=== PATIENT | female | born 1980 | race Caucasian/White ===

== ENCOUNTER → 2024-11-22 | Outpatient (REF) | payer MEDICARE ==
[2024-11-22 17:46] LABS: APPEARANCE, URINE HAZY (CLEAR); BACTERIA, URINE AUTO 3+ (NEGATIVE); BILIRUBIN, URINE AUTO NEGATIVE (NEGATIVE); BLOOD, URINE BLOOD NEGATIVE (NEGATIVE); COLOR, URINE YELLOW (YELLOW); GLUCOSE, URINE (UA) AUTO NEGATIVE (NEGATIVE); KETONE, URINE AUTO NEGATIVE (NEGATIVE); LEUKOCYTE ESTERASE, URINE AUTO NEGATIVE (NEGATIVE); MUCUS, URINE SMALL (NEGATIVE); NITRITE, URINE AUTO NEGATIVE (NEGATIVE); PROTEIN, URINE AUTO NEGATIVE (NEGATIVE); RBC, URINE AUTO 2 /HPF (0-3); SPECIFIC GRAVITY URINE AUTO 1.014 (1.002-1.035); SQUAMOUS EPITHELIAL CELL UR AU 8 /HPF (0-6); UROBILINOGEN, URINE AUTO 0.2 mg/dL (0.0-2.0); WBC, URINE AUTO 1 /HPF (0-3)
== END ==
LOC: M LAB REF 16:17
PROVIDERS: ATTEND Physician Assistant Medical
DX: N39.0 Urinary tract infection, site not specified (principal)

== ENCOUNTER 2025-01-04 02:44 | Emergency (ER) | payer MEDICARE ==
[~2025-01-04] VITALS: Ht 162.6 cm; Wt 88.2 kg
[2025-01-04 04:56] VITALS: BP 119/74; TEMP 97.9; O2SAT 99
== END 2025-01-04 04:55 | disposition home or self-care (01) ==
LOC: M ED 02:44
DX: F43.0 Acute stress reaction (principal); F41.9 Anxiety disorder, unspecified

== ENCOUNTER → 2025-04-22 | Outpatient (CLI) | payer MEDICARE ==
[2025-04-22 14:49] LABS: BASO # 0.0 10^3/uL (0.0-0.2); BASO % 0.6 % (0.0-1.0); EOS # 0.2 10^3/uL (0.0-0.5); EOS % 2.9 % (0.0-3.0); LYMPH # 1.9 10^3/uL (1.5-5.0); LYMPH % 31.1 % (24.0-44.0); MONO # 0.6 10^3/uL (0.0-0.8); MONO % 10.0 % (2.0-8.0); NEUTROPHILS # 3.4 10^3/uL (1.5-8.5); NEUTROPHILS % 55.2 % (36.0-66.0); PLATELET COUNT, AUTOMATED 279 10^3/uL (150-450)
[2025-04-22 15:19] LABS: ALT/SGPT 69 U/L (7.0-40); AST/SGOT 42 U/L (<34); CALCIUM LEVEL 9.1 MG/DL (8.5-10.1); CARBON DIOXIDE LEVEL 26 MMOL/L (20-31); CHLORIDE LEVEL 105 MMOL/L (98-107); CREATININE FOR GFR 0.87 MG/DL (0.55-1.30); GLOMERULAR FILTRATION RATE 84.7 (>58); POTASSIUM SERUM 4.1 MMOL/L (3.5-5.1); SODIUM LEVEL 143 MMOL/L (136-145)
[2025-04-22 15:23] LABS: VITAMIN B12 LEVEL 673 PG/ML (211-911)
== END ==
LOC: M LAB 13:47
PROVIDERS: ATTEND Psychiatry & Neurology Neurology
DX: E53.8 Deficiency of other specified B group vitamins (principal); E03.9 Hypothyroidism, unspecified

== ENCOUNTER 2025-05-07 10:20 | Emergency (ER) | payer MEDICARE ==
[~2025-05-07] VITALS: Ht 165.1 cm; Wt 84.0 kg
[~2025-05-07 10:20] MED LIST: RALTEGRAVIR 400 MG TAB PO SCH
[2025-05-07 10:24] VITALS: BP 129/82; TEMP 97.7; O2SAT 99
[2025-05-07] MEDS ORDERED: EXPOSURE KIT-ADULT 7 DAY SUPPLY PO ONE (13:55)
[2025-05-07 14:19] LABS: BASO # 0.1 10^3/uL (0.0-0.2); BASO % 0.8 % (0.0-1.0); EOS # 0.1 10^3/uL (0.0-0.5); EOS % 1.5 % (0.0-3.0); LYMPH # 1.9 10^3/uL (1.5-5.0); LYMPH % 31.9 % (24.0-44.0); MONO # 0.5 10^3/uL (0.0-0.8); MONO % 7.7 % (2.0-8.0); NEUTROPHILS # 3.4 10^3/uL (1.5-8.5); NEUTROPHILS % 57.9 % (36.0-66.0); PLATELET COUNT, AUTOMATED 351 10^3/uL (150-450)
[2025-05-07 14:55] LABS: ALT/SGPT 29 U/L (7.0-40); AST/SGOT 22 U/L (<34); CALCIUM LEVEL 9.5 MG/DL (8.5-10.1); CARBON DIOXIDE LEVEL 28 MMOL/L (20-31); CHLORIDE LEVEL 105 MMOL/L (98-107); CREATININE FOR GFR 0.83 MG/DL (0.55-1.30); GLOMERULAR FILTRATION RATE 89.7 (>58); POTASSIUM SERUM 4.5 MMOL/L (3.5-5.1); SODIUM LEVEL 142 MMOL/L (136-145)
[2025-05-07 14:57] LABS: HEPATITIS B SURFACE ANTIBODY NEGATIVE (POSITIVE)
[2025-05-07 15:22] LABS: HIV 1&2 SCREEN NEGATIVE (NEGATIVE)
[2025-05-07 15:31] LABS: HEPATITIS C VIRUS ABY INDEX 0.03 INDEX (<0.8)
[2025-05-07] MEDS ORDERED: RALTEGRAVIR 400 MG TAB PO ONE (16:00)
[2025-05-07] MEDS ORDERED: EMTR1TAB16 PO (20:54)
[2025-05-07] MEDS ORDERED: ONDA-282 PO (20:54)
[2025-05-07] MEDS ORDERED: RALT40TA PO (20:54)
== END 2025-05-07 15:23 | disposition home or self-care (01) ==
LOC: M ED 10:20
DX: Z77.21 Contact with and (suspected) exposure to potentially hazardous body fluids (principal); Z79.899 Other long term (current) drug therapy; Z53.9 Procedure and treatment not carried out, unspecified reason; Z29.81 Encounter for HIV pre-exposure prophylaxis

== ENCOUNTER 2025-05-07 18:13 | Emergency (ER) | payer MEDICARE ==
[~2025-05-07] VITALS: Ht 165.1 cm; Wt 85.0 kg
[2025-05-07 20:09] VITALS: BP 134/90; TEMP 97.1; O2SAT 99
[2025-05-07] MEDS ORDERED: ONDA-282 PO (20:54)
[2025-05-07] MEDS ORDERED: EMTR1TAB16 PO (20:54)
[2025-05-07] MEDS ORDERED: RALT40TA PO (20:54)
[2025-05-07] MEDS ORDERED: EXPOSURE KIT-ADULT 7 DAY SUPPLY PO ONE (21:00)
== END 2025-05-07 21:23 | disposition home or self-care (01) ==
LOC: M ED 18:13
DX: Z29.81 Encounter for HIV pre-exposure prophylaxis (principal); Z79.899 Other long term (current) drug therapy

== ENCOUNTER 2025-05-08 07:36 | Emergency (ER) | payer MEDICARE ==
[~2025-05-08] VITALS: Ht 165.1 cm; Wt 85.5 kg
[~2025-05-08 07:36] MED LIST changes: +EMTR1TAB16 PO; +ONDA-282 PO; +RALT40TA PO; -RALTEGRAVIR 400 MG TAB PO SCH
[2025-05-08 07:57] VITALS: BP 129/78; TEMP 97.7; O2SAT 97
== END 2025-05-08 08:03 | disposition left against medical advice (07) ==
LOC: M ED 07:36
DX: Z53.21 Procedure and treatment not carried out due to patient leaving prior to being seen by health care provider (principal)

== ENCOUNTER → 2025-05-13 | Outpatient (CLI) | payer MEDICARE ==
[2025-05-16 08:37] LABS: F001-IGE EGG WHITE < 0.10 kU/L (<0.10); W006-IGE MUGWORT 0.14 kU/L (<0.10)
[2025-05-16 12:07] LABS: F215-IGE LETTUCE <0.10 kU/L (Class 0); K084-IGE SUNFLOWER SEED <0.10 kU/L (Class 0); W008-IgE DANDELION <0.10 kU/L (Class 0)
== END ==
LOC: M LAB 13:10
PROVIDERS: ATTEND Allergy & Immunology Allergy
DX: T78.1XXA Other adverse food reactions, not elsewhere classified, initial encounter (principal); J30.89 Other allergic rhinitis

== ENCOUNTER → 2025-06-07 | Outpatient (CLI) | payer MEDICARE ==
[2025-06-07 13:31] LABS: BASO # 0.1 10^3/uL (0.0-0.2); BASO % 1.1 % (0.0-1.0); EOS # 0.2 10^3/uL (0.0-0.5); EOS % 2.7 % (0.0-3.0); LYMPH # 1.6 10^3/uL (1.5-5.0); LYMPH % 27.5 % (24.0-44.0); MONO # 0.4 10^3/uL (0.0-0.8); MONO % 7.3 % (2.0-8.0); NEUTROPHILS # 3.5 10^3/uL (1.5-8.5); NEUTROPHILS % 61.2 % (36.0-66.0); PLATELET COUNT, AUTOMATED 320 10^3/uL (150-450)
[2025-06-07 14:04] LABS: ALT/SGPT 36 U/L (7.0-40); AST/SGOT 21 U/L (<34); CALCIUM LEVEL 9.1 MG/DL (8.5-10.1); CARBON DIOXIDE LEVEL 26 MMOL/L (20-31); CHLORIDE LEVEL 107 MMOL/L (98-107); CREATININE FOR GFR 0.75 MG/DL (0.55-1.30); GLOMERULAR FILTRATION RATE > 90.0 (>58); POTASSIUM SERUM 4.0 MMOL/L (3.5-5.1); SODIUM LEVEL 141 MMOL/L (136-145)
[2025-06-07 14:37] LABS: HIV 1&2 SCREEN NEGATIVE (NEGATIVE)
[2025-06-07 14:45] LABS: HEPATITIS C VIRUS ABY INDEX 0.03 INDEX (<0.8)
== END ==
LOC: M LAB 13:04
PROVIDERS: ATTEND Internal Medicine Infectious Disease
DX: S61.217A Laceration without foreign body of left little finger without damage to nail, initial encounter (principal); W26.9XXA Contact with unspecified sharp object(s), initial encounter; Y92.9 Unspecified place or not applicable; Y93.9 Activity, unspecified; Y99.9 Unspecified external cause status; Z11.59 Encounter for screening for other viral diseases